=== PATIENT | female | born 1945 | race Caucasian/White ===

== ENCOUNTER 2021-01-28 12:53 | Outpatient (CLI) | payer MEDICARE, OTHER | END 2021-01-28 12:54 | disposition home or self-care (01) | LOC: BICMRI 12:53 | PROVIDERS: ATTEND Nurse Practitioner Acute Care | DX: R42 Dizziness and giddiness (principal); I67.82 Cerebral ischemia; I67.89 Other cerebrovascular disease | CPT/HCPCS: 70544; 70553; 82565 ==

== ENCOUNTER 2024-09-24 08:20 | Outpatient (CLI) | payer MEDICARE, OTHER | END 2024-09-24 08:21 | disposition home or self-care (01) | LOC: RAD 08:20 | PROVIDERS: ATTEND Internal Medicine Critical Care Medicine | DX: R06.00 Dyspnea, unspecified (principal) | CPT/HCPCS: 71046 ==